=== PATIENT | male | born 1980 | race Caucasian/White ===

== ENCOUNTER 2018-07-09 13:20 | Emergency (ER) | payer SELFPAY ==
[2018-07-09 13:20] VITALS: BP 130/81; PULSE 73; RESP 14; TEMP 37.2; O2SAT 100
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
[2018-07-09 14:36] VITALS: BP 127/89; PULSE 89; RESP 14; O2SAT 99
[2018-07-09] MEDS: Naproxen 500 MG Tablet PO (14:41)
[2018-07-09] MEDS: Penicillin Vk 250 MG Tablet 500 MG PO (14:41)
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
== END 2018-07-09 14:45 | disposition home or self-care (01) ==
PROVIDERS: Emergency Provider Emergency Medicine
DX: S01.512A Laceration without foreign body of oral cavity, initial encounter (principal); Y04.2XXA Assault by strike against or bumped into by another person, initial encounter; Y93.9 Activity, unspecified; Y92.89 Other specified places as the place of occurrence of the external cause; Y99.9 Unspecified external cause status; M27.40 Unspecified cyst of jaw; Z72.0 Tobacco use
CPT/HCPCS: 70486; 99283